=== PATIENT | male | born 1990 | race Caucasian/White ===

== ENCOUNTER 2021-08-01 02:05 | Observation (INO) | payer OTHER, SELFPAY ==
[~2021-08-01] VITALS: Ht 177.8 cm; Wt 72.6 kg
--- NOTE | 2021-08-01 02:12 | NUR ---
PT [facility] BLS, ER BED 07
[2021-08-01 02:27] VITALS: BP 134/68
[2021-08-01 02:36] LABS: APPEARANCE,URINE CLEAR (CLEAR); BILIRUBIN,URINE NEGATIVE (NEGATIVE); BLOOD, URINE NEGATIVE (NEGATIVE); COLOR,URINE YELLOW (YELLOW); LEUKOCYTE ESTERASE ,URINE NEGATIVE (NEGATIVE); NITRITE, URINE NEGATIVE (NEGATIVE); UGLUCOSE NEGATIVE (NEGATIVE)
[2021-08-01 02:36] LABS: BASOPHILS % (AUTO) 0.6 % (0.0-2.0); EOSINOPHILS # (AUTO) 0.1 K/uL (0-0.4); HEMOGLOBIN 15.5 g/dL (12.0-18.0); LYMPHOCYTES # (AUTO) 1.2 K/uL (2.0-11.5); LYMPHOCYTES % (AUTO) 14.3 % (20.5-51.1); MEAN CORPUSCULAR HEMOGLOBIN 31 pg (27-31); MEAN CORPUSCULAR HGB CONC 34 g/dL (33-37); MEAN CORPUSCULAR VOLUME 89.7 fL (80-94); MONOCYTES # (AUTO) 0.6 K/uL (0.8-1.0); MONOCYTES % (AUTO) 6.9 % (1.7-9.3); NEUTROPHILS # (AUTO) 6.5 K/uL (1.8-7.7); NEUTROPHILS % (AUTO) 77.2 % (42.2-75.2); PLATELET COUNT (AUTO) 298 K/uL (140-450); RED BLOOD CELL COUNT(AUTO) 5.02 MIL/uL (4.20-6.10); RED CELL DISTRIBUTION WIDTH 14.8 % (11.6-13.7); WHITE BLOOD COUNT (AUTO) 8.5 K/uL (4.8-10.8)
[2021-08-01 02:44] LABS: RBC,URINE 0-5 /HPF (0-5); WBC,URINE 0-5 /HPF (0-5)
[2021-08-01 02:45] LABS: CALCIUM OXALATE CRYSTALS,UR 0-10 /HPF (None Seen)
[2021-08-01 02:47] LABS: ANION GAP 11.8 (8-16); CARBON DIOXIDE 27.7 mmol/L (21-32); CHLORIDE 103 mmol/L (98-107); CREATININE 1.1 mg/dL (0.6-1.3); GFR ARICAN-AMERICAN 103 mL/min (>90); GLUCOSE 118 mg/dL (74-106); POTASSIUM 3.5 mmol/L (3.5-5.1); SODIUM SERUM 139 mmol/L (136-145); UREA NITROGEN, BLOOD 14 mg/dL (7-18)
[2021-08-01 02:51] LABS: BARBITURATE, URINE NEGATIVE ng/ml (NEG <=200); BENZODIAZEPINE, URINE NEGATIVE ng/mL (NEG <=200); CANNABINOID, URINE POSITIVE ng/mL (NEG <=50); COCAINE, URINE NEGATIVE ng/mL (NEG <=300); OPIATE, URINE NEGATIVE ng/mL (NEG <=2000); PHENCYCLIDINE SCREEN,URINE NEGATIVE ng/mL (NEG <=25)
[2021-08-01 02:59] LABS: ALBUMIN 4.2 g/dL (3.4-5.0); ASPARTATE AMINOTRANSFERASE 12 U/L (15-37); TOTAL BILIRUBIN 0.7 mg/dL (0.0-1.0)
[2021-08-01 03:00] LABS: ACETAMINOPHEN < 0.5 ug/ml (10-30); SALICYLATE < 2.8 mg/dL (2.8-20.0)
--- NOTE | 2021-08-01 03:30 | NUR ---
30 y/o m cony from home . mother called 911 because he overdosed on shrooms. she said patient was experiencing hallucinations auditory and visual. pt mother states he was overreacting. pt has a hx pf schizophrenia and has been off meds for a month. she felt unsafe pt has pacing behavior, anxiety and has been not been able to recall information.
--- NOTE | 2021-08-01 05:17 | NUR ---
MOTHER CALLED FOR ATTEMPT AT PICKING UP PATIENT, NO ANSWER, VOICEMAIL LEFT.
--- NOTE | 2021-08-01 05:28 | NUR ---
TELEPSYCH VIA [facility] SCHEDULED FOR 829
--- NOTE | 2021-08-01 05:30 | NUR ---
FACESHEET FAXED TO [facility]
--- NOTE | 2021-08-01 05:47 | NUR ---
PT PROVIDED HIS MOTHERS NAME AND NUMBER RAFA [phone] OR [phone]
[2021-08-01] MEDS ORDERED: ZIPRASIDONE MESYLATE 20 MG/ML VIAL IM ONE (06:05)
[2021-08-01] MEDS ORDERED: OLANZapine 10 MG VIAL IM ONE (06:35)
--- NOTE | 2021-08-01 07:16 | NUR ---
RECEIVED REPORT FROM RONNIE DAVEY. TRANSFER OF CARE AT THIS TIME.
--- NOTE | 2021-08-01 07:45 | NUR ---
PT CALM AND COOPERATIVE, RESTING IN BED EQUAL AND VISIBLE RISE AND FALL OF CHEST. WILL CONTINUE TO MONITOR.
--- NOTE | 2021-08-01 08:50 | NUR ---
PT CURRENTLY ON TELEPSY VIDEO CHAT WITH DR. Pablo
--- NOTE | 2021-08-01 08:58 | NUR ---
PER DR. Pablo SHE RECOMMENDS TO PLACE PT ON 5150 HOLD. MEAGHAN COUCH CONTACTED
--- NOTE | 2021-08-01 09:19 | NUR ---
[place] [employer] BEDSIDE EVALUTING PT
--- NOTE | 2021-08-01 09:20 | NUR ---
[place] [facility] PLACED PATIENT ON 5150 HOLD
--- NOTE | 2021-08-01 14:18 | NUR ---
SPOKE WITH GERMANIA FROM [facility] AND WAS INFORMED THE PATIENT HAS [facility] AND THEY ARE NOT CONTRACTED WITH HIS INSURANCE FOR HIS AGE GROUP
--- NOTE | 2021-08-01 15:22 | NUR ---
PT PROVIDED WITH SANDWHICH, WATER, AND CRACKERS BEDSIDE
--- NOTE | 2021-08-01 17:00 | NUR ---
PT CALM AND COOPERATIVE, RESTING IN BED EQUAL AND VISIBLE RISE AND FALL OF CHEST. WILL CONTINUE TO MONITOR.
[2021-08-01] MEDS ORDERED: HALOPERIDOL IM 5 MG/ML VIAL IVP ONE (18:25)
[2021-08-01] MEDS ORDERED: HALOPERIDOL IM 5 MG/ML VIAL ONE (18:28)
--- NOTE | 2021-08-01 18:32 | NUR ---
PT PROVIDED WITH DINNER TRAY BEDSIDE
--- NOTE | 2021-08-01 19:12 | NUR ---
Dheeraj britt in ED - 08/01/21 at 2042 by MIRIAN Received report from CAPO Alvarez and continue care of patient.
--- NOTE | 2021-08-01 19:12 | NUR ---
Received report from CAPO Levy and continue care of patient.
--- NOTE | 2021-08-01 20:07 | NUR ---
Patient is sleeping.
[2021-08-01] MEDS: OLANZapine 5 MG TAB PO SCH (20:38)
--- NOTE | 2021-08-01 20:41 | NUR ---
Given PM medication as order.
--- NOTE | 2021-08-01 21:23 | NUR ---
Patient appears to be resting comfortably in bed. Respirations even and unlabored.
--- NOTE | 2021-08-01 21:44 | NUR ---
Intake was received. Prior shift faxed to several facilities. [facility] (denied per ins), [facility]/ [facility]/ [facility]. Intake was aslo faxed to [facility]/ [facility]/ [facility]/ [facility]. Will keep facility informed of any updates regarding placement.
--- NOTE | 2021-08-01 22:42 | NUR ---
Patient is sleeping.
--- NOTE | 2021-08-02 00:18 | NUR ---
Patient appears to be resting comfortably in bed. Respirations even and unlabored.
--- NOTE | 2021-08-02 02:42 | NUR ---
Patient is sleeping.
--- NOTE | 2021-08-02 04:33 | NUR ---
Patient is sleeping.
--- NOTE | 2021-08-02 06:27 | NUR ---
Patient appears to be resting comfortably in bed. Respirations even and unlabored.
--- NOTE | 2021-08-02 07:15 | NUR ---
RECEIVED REPORT FROM CAPO CASH.
--- NOTE | 2021-08-02 07:16 | NUR ---
Reported given to CAPO Zhu and endorse care of patient.
--- NOTE | 2021-08-02 07:48 | NUR ---
PT PROVIDED WITH BREAKFAST TRAY BEDSIDE
--- NOTE | 2021-08-02 09:59 | NUR ---
PT SLEEPING SUPINE, VISIBLE EQUAL RISE AND FALL OF CHEST, WILL CONTINUE TO MONITOR.
--- NOTE | 2021-08-02 11:03 | NUR ---
PT COMPLAINING "OF A WEIRD FEELING HIS HEAD AT THIS TIME." DR. LEE MADE AWARE AND SPEAKING TO PT BEDSIDE CURRENTLY
[2021-08-02] MEDS ORDERED: NAPROXEN 500 MG TAB PO STA (11:05)
--- NOTE | 2021-08-02 11:40 | NUR ---
PT REQUESTING TO KNOW TO WHY HE IS ON 5150 HOLD. ER MD BEDSIDE SPEAKING WITH PATIENT AND INFORMED CAN PLACE NEW REQUEST FOR TELE PSY
--- NOTE | 2021-08-02 12:13 | NUR ---
PT BEDSIDE EATING LUNCH TRAY
[2021-08-02] MEDS ORDERED: OLANZapine 10 MG VIAL IM ONE (12:50)
--- NOTE | 2021-08-02 13:29 | NUR ---
PT RESTING IN BED SLEEPING ON RIGHT SIDE, WILL CONTINUE TO MONITOR.
--- NOTE | 2021-08-02 16:06 | NUR ---
PT CURRENTLY ON TELE PSY CONSULATION BEDSIDE
[2021-08-02] MEDS ORDERED: OLANZapine 5 MG ODT PO PRN (16:25)
--- NOTE | 2021-08-02 16:27 | NUR ---
PER DR. Pablo PATIENT IS TO STAY ON 5150 HOLD AT THIS TIME AND TO STILL SEEK PLACEMENT FOR INPATIENT PSY
--- NOTE | 2021-08-02 17:31 | NUR ---
PT PROVIDED WITH TOOTHBRUSH, TOOTHPASTE, AND MOUTHWASH AT THIS TIME. PT IN RESTROOM PERFORMING ORAL CARE
--- NOTE | 2021-08-02 17:36 | NUR ---
pt bed cleaned at this time, new change of linens.
--- NOTE | 2021-08-02 17:44 | NUR ---
PT REQUESTED TO SHOWER. PT WALKED TO FLOOR THIERNO DESHPANDE CHAPCATHERINENE TO SHOWER ON FLOOR
--- NOTE | 2021-08-02 17:58 | NUR ---
PT RETURNED TO BED 7 FROM SHOWER WITH THIERNO COLLAZO. PT PROVIDED WITH DINNER TRAY BEDSIDE
--- NOTE | 2021-08-02 19:20 | NUR ---
REPORT RECEIVED FROM CAPO CARDENAS. CONTINUITY OF PT CARE AT THIS TIME.
--- NOTE | 2021-08-02 19:51 | NUR ---
PT REPORTS FEELING OK, REPORTS SOME "GUT DISCOMFORT" NO NAUSEA, DENIES FEELING ANXIOUS OR OTHER SYMPTOMS. PT DOES NOT WANT ANY MEDICATION FOR PAIN. PROVIDED W WATER. ALL NEEDS MET AT THIS TIME. Addendum: 08/03/21 at 0532 by ThinkspeedKalpesh PT REPORTS UNSURE IF HAVING VISUAL OR AUDITORY HALLUCINATIONS, REPORTS IT IS DIFFICULT TO DISTINUGISH WHAT IS REAL AND WHAT IS NOT. PT DENIES VISUAL OR AUDITORY HALLUCINATIONS INDICATING HARM TO SELF OR OTHERS.
[2021-08-02] MEDS: OLANZapine 5 MG TAB PO SCH (21:24)
--- NOTE | 2021-08-02 23:55 | NUR ---
PT APPEARS TO BE RESTING W EYES CLOSED IN SUPINE POSITION. + CHEST RISE AND FALL. NAD NOTED, WILL CONTINUE TO MONITOR.
--- NOTE | 2021-08-03 03:15 | NUR ---
PT DENIES ANY PAIN OR ONGOING DISCOMFORT. PT REPORTS FEELING ASHAMED OF ACTIONS LWADING UP TO HIM COMING TO HOSPITAL AND REPORTS NO INTENTION OF EVER BEHAVING IN SUCH WAY AGAIN. VSS. PROVIDED PT W WATER. ALL NEEDS MET AT THIS TIME. BREATHING EVEN AND UNLABORED. NAD NOTED, WILL CONTINUE TO MONITOR.
--- NOTE | 2021-08-03 03:17 | NUR ---
PT AMBULATED TO BATHROOM W STEADY GAIIT.
--- NOTE | 2021-08-03 04:29 | NUR ---
PT APPEARS TO BE RESTING W EYES CLOSED IN R LATERAL POSITION. + CHEST RISE AND FALL. NAD NOTED, WILL CONTINUE TO MONITOR.
--- NOTE | 2021-08-03 05:28 | NUR ---
PT AMBULATED TO BATHROOM W STEADY GAIT.
--- NOTE | 2021-08-03 05:34 | NUR ---
PT REPORTS FEELING CONCERNED THAT PD IS HERE FOR HIM AND FEELS ANXIOUS. RE-ASSURED PT THAT CURRENT OFFICER IS NOT HERE FOR PT. PT REPORTS HE IS NOT PROUD OF PREVIOUS ACTIONS AND WANTS TO DO BETTER. SPOKE W PT ON HOW HE HAS BEEN BEHAVING APPROPRIATELY HERE W STAFF AND SELF, PT SMILED AND REPORTS FEELING BETTER. PT DENIES VISUAL OR AUDITORY HALLUCINATIONS INDICATING HARM TO SELF OR OTHERS.
--- NOTE | 2021-08-03 06:53 | NUR ---
PT DENIES TAKING ANY MEDICATIONS AT HOME.
--- NOTE | 2021-08-03 07:16 | NUR ---
Pt report given to RONNIE STEARNS. Transfer of care at this time.
--- NOTE | 2021-08-03 07:17 | NUR ---
REPORT RECEIVED FROM CAPO LEDEZMA FOR PATIENT CONTINUITY OF CARE.
--- NOTE | 2021-08-03 08:30 | NUR ---
PATIENT RESTING IN BED, RESPIRATIONS EVEN AND UNLABORED. NO SIGNS OF DISTRESS NOTED, SAFETY PRECAUTIONS PUT INTO PLACE. WILL CONTINUE TO MONITOR
--- NOTE | 2021-08-03 08:40 | NUR ---
PATIENT PROVIDED W/ BREAKFAST TRAY AT BEDSIDE.
--- NOTE | 2021-08-03 09:05 | NUR ---
PATIENT COMPLETED 100% OF BREAKFAST TRAY AT THIS TIME.
--- NOTE | 2021-08-03 09:30 | NUR ---
PATIENT SLEEPING IN BED, NO SIGNS OF DISTRESS NOTED AT THIS TIME.
--- NOTE | 2021-08-03 09:43 | NUR ---
DR. Pablo EVALUATING PATIENT VIA TELEPSYCH
[2021-08-03] MEDS ORDERED: KCL 20 MEQ/WATER INJ PREMIX 200 ML IV PRN (11:25)
[2021-08-03] MEDS ORDERED: MAG SULF 2000 MG/WATER PREMIX 50 ML IV PRN (11:25)
[2021-08-03] MEDS ORDERED: MAGNESIUM OXIDE 400 MG TAB PO PRN (11:25)
[2021-08-03] MEDS ORDERED: POTASSIUM CHLORIDE 10 MEQ TABER PO PRN (11:25)
[2021-08-03] MEDS ORDERED: ACETAMINOPHEN 325 MG TAB PO PRN (11:25)
[2021-08-03] MEDS ORDERED: ONDANSETRON 4 MG/2 ML VIAL IVP PRN (11:25)
[2021-08-03] MEDS ORDERED: HYDROcodone/APAP 5/325 MG 1 TAB TAB PO PRN (11:25)
--- NOTE | 2021-08-03 12:06 | NUR ---
DC PLANNING SW CALL [facility] AT TO FOLLOW UP WITH PSYCH PLACEMENT SEARCH. SPOKE TO JESSICA STATING NO PLACEMENT HAS BEEN FOUND. PATIENT'S CLINICALS HAS BEEN SEND TO [facility], [facility], AND [facility] BUT THEY (DECLINED PATIENT). SW ATTEMPTED TO MEET WITH PATIENT TO GET CONTACT NUMBER FOR PATIENT'S MOTHER AND TO DISCUSS AND GATHER PATIENT'S COLLATERAL INFORMATION. PATIENT WAS AWAKE BUT UNABLE TO PROVIDE INFORMATION KEPT CHANGING DISCUSSION AND DID NOT ANSWER SOME OF THE QUESTIONS APPROPRIATELY. SW WILL FOLLOW UP NEEDED.
--- NOTE | 2021-08-03 12:40 | NUR ---
PATIENT TRANSFERRED FROM ER. RECEIVED REPORT FROM CAPO STEARNS AT BEDSIDE. PATIENT ALERT,ORIENTED. VERBAL. ON ROOM AIR NO DISTRESS NOTED. ATTENDED ALL NEEDS. PROVIDE COMFORT AND ALL SAFETY PRECAUTIONS. 1:1 SITTER PRSENT. WILL CONTINUE TO MONITOR THE PT.
--- NOTE | 2021-08-03 12:43 | NUR ---
Patient will be admitted to care of . Admited to MED SURG. Will go to room 109B. Belongings list completed. Report to CAPO ENRIQUE.
--- NOTE | 2021-08-03 14:05 | NUR ---
PATIENT HAS BEEN SCREENED AND CATEGORIZED LOW NUTRITION RISK. PATIENT WILL BE SEEN WITHIN 7 DAYS OF ADMISSION. 08/09/[address]
--- NOTE | 2021-08-03 14:26 | NUR ---
RECEIVING ACUTE SCHIZOAFFECTIVE PT FROM ED WHO IS CURRENTLY ON 5150 ; THAT PT IS AWAKE, ALERT, W/O ACUTE RESPIRATORY DISTRESS NOTED. NO IV ACCESS, CALL LIGHT WITHIN REACH; ABLE TO MAKE NEEDS AWARE. 1:1 SITTER PRESENT. WILL CONTINUE TO MONITOR.
[2021-08-03 16:39] VITALS: BP 134/59
--- NOTE | 2021-08-03 17:41 | NUR ---
MADE ROUNDS . PT. ALERT,AWAKE. STABLE ON ROOM AIR. NO RESP. DISTRESS NOTED. ALL SAFETY MEASURES IN PLACE. 1:1 SITTER PRESENT. WILL CONTINUE TO MONITOR THE PT.
--- NOTE | 2021-08-03 19:07 | NUR ---
ENDORSED REPORT TO PM SHIFT CAPO URRUTIA FOR CONTINUITY OF CARE. PT. STABLE.
--- NOTE | 2021-08-03 19:30 | NUR ---
PT RECEIVED FROM DAY SHIFT NURSE FOR CONTINUITY OF CARE. PT AWAKE, ALERT AND ORIENTED. ON ROOM AIR. IV ON L AC G18, PATENT AND INTACT.DENIES PAIN. NO S/SX OF DISTRESS. SITTER BY THE DOOR. ALL PRECAUTIONS IN PLACE. WILL CONTINUE TO MONITOR.
[2021-08-03 20:00] VITALS: BP 118/65
[2021-08-03] MEDS: OLANZapine 5 MG TAB PO SCH (20:36)
--- NOTE | 2021-08-03 21:00 | NUR ---
SCHEDULED MEDICATIONS GIVEN. PT TOLERATED WELL. DISTRESS NOTED.
--- NOTE | 2021-08-03 23:10 | NUR ---
PT RESTLESS. PRN ZYPREXA GIVEN. NO DISTRESS NOTED. WILL CONTINUE TO MONITOR.
[2021-08-04] VITALS: BP 118/65
--- NOTE | 2021-08-04 02:55 | NUR ---
ROUNDS MADE . PT. ALERT,AWAKE. STABLE ON ROOM AIR. NO RESP. DISTRESS NOTED. ALL SAFETY MEASURES IN PLACE. 1:1 SITTER PRESENT. WILL CONTINUE TO MONITOR.
--- NOTE | 2021-08-04 03:44 | NUR ---
AT 0313 PATIENT REMOVED HIS IV SITE BECAUSE IT WAS BOTHERING HIM. NURSING KEPT AREA CLEAN AND DRY. RESIDENT WAS RESTLESS THROUGHOUT THE NIGHT. SLEEP FOR ONE HOUR THEN WAKES UP MOVING ABOUT. PATIENT DENIES WANTING TO HARM HIMSELF AT THIS TIME. NURSING WILL CONTINUE THE 1:1 FOR SUICIDAL IDEALIZATION. MNURPH1
[2021-08-04 04:00] VITALS: BP 113/68
--- NOTE | 2021-08-04 05:10 | NUR ---
PATIENT IS SEXUALLY INAPPROPRIATE WITH FEMALE STAFF. NURSING WAS ABLE TO GIVE DIRECT AND APPROPRIATE BOUNDARIES. PATIENT UNDERSTOOD AND AGREED TO BE APPROPRIATE WITH FEMALE STAFF. PATIENT WAS ENCOURAGED TO PERFORM ORAL HYGIENE AND PATIENT AGREED. NURSING WILL INFORM AM SHIFT OF SHIFT REPORT DURING THE NIGHT. [email or web address]
--- NOTE | 2021-08-04 07:15 | NUR ---
ENDORSED PATIENT TO GLENN TRUJILLO FOR CONTINUITY OF CARE. PATIENT IS ANXIOUS BUT NOT STRIKING OUT OR HARMFUL TO SELF. MNURPH1
--- NOTE | 2021-08-04 07:16 | NUR ---
RECEIVED REPORT FROM TAX MANAGER PUBLIC NURSE FOR CONTINUITY OF CARE. PT IS AWAKE AND WALKING AROUND THE ROOM AT THIS TIME. RESPIRATIONS ARE EVEN AND UNLABORED ON ROOM AIR. NO COMPLAINTS OF PAIN OR DISCOMFORT NOTED. PT HAS 1:1 SITTER FOR 5150. WILL CONTINUE TO MONITOR.
[2021-08-04 08:00] VITALS: BP 140/77
[2021-08-04] MEDS: ENOXAPARIN 40 MG/0.4 ML SYR SUBQ SCH (09:00)
--- NOTE | 2021-08-04 10:15 | NUR ---
PER ADVISEMENT OF TELEPSYCH MD, PT WAS PLACED ON A 5150 HOLD FOR DANGER TO SELF.
--- NOTE | 2021-08-04 10:20 | NUR ---
PT SEEN MY TELEPSYCH, DR Posey. NEW ORDERS GIVEN, TORB. PER DR Posey, CONTINUE WITH 5150 HOLD.
[2021-08-04] MEDS ORDERED: OLANZapine 5 MG TAB PO PRN (12:25)
--- NOTE | 2021-08-04 13:00 | NUR ---
DANUTA PLANNING SW FAXED PATIENT'S UPDATED INFORMATION AND CLINICALS INCLUDING UPDATED 5150 HOLD TO [facility] AT WITH COMPLETE CONFIRMATION AT ABOUT 12:30 SW FAXED AT [facility] PATIENT'S UPDATED CLINICAL PACKET WITH COMPLETE CONFIRMATION AT ABOUT 12:30 SW CALL [employer] AND REQUESTED A WELFARE CHECK ON PATIENT'S FAMILY TO MAKE CONTACT WITH [facility]/STAFF, AND DISCUSS PATIENT'S STATUS. OFFICER SOHAIL WILL BE ATTEMPTING TO MAKE CONTACT WITH FAMILY AT PATIENT'S ADDRESS ON CHART. Addendum: 08/05/21 at 1149 by Aleyad Mao DC PLANNING SW CALL [facility] AT SPOKE TO JANE AT INTAKE DISCUSSED PATIENT'S STATU, [facility] AND POSSIBLE BED OPENING FOR PATIENT TO BE ADMITTED BY THEIR FACILITY. JANE REQUESTED FOR PATIENT'S CLINICALS AND SW SEND THEM VIA FAX AT WITH COMPLETE CONFIRMATION AT ABOUT 11:50 CHARLIE/AMANDA WILL FOLLOW UP NEEDED.
--- NOTE | 2021-08-04 13:02 | NUR ---
DID ROUNDS ON PT. PT IS SITTING IN BED. RESPIRATIONS ARE EVEN AND UNLABORED ON ROOM AIR. NO SIGNS OF DISTRESS NOTED. PT CONTINUES TO HAVE 1:1 SITTER. WILL CONTINUE TO MONITOR.
--- NOTE | 2021-08-04 14:03 | NUR ---
PT PACING AROUND ROOM. COMES UP TO SITTER AND STATES "I WANT TO GO. I DONT TRUST IT". ASKED PT WHAT HE DOES NOT TRUST, PT JUST WALKS AWAY. RE-ORIENTATED PT. PT CONTINUES TO PACE. WILL CONTINUE TO MONITOR.
[2021-08-04 16:00] VITALS: BP 130/48
--- NOTE | 2021-08-04 16:02 | NUR ---
PT CAME UP TO STAFF TO ASK WHEN IS DINNER GOING TO BE READY. STAFF INFORMED HIM OF DINNER TIME. PT STATED "OK" AND WENT BACK TO BED. WILL CONTINUE TO MONITOR.
--- NOTE | 2021-08-04 18:12 | NUR ---
RECEIVED CALL FROM [facility] TO GET REPORT AND SEE IF PT WAS APPROPRIATE. GAVE REPORT. WAS INFORMED THAT PT WAS ACCEPTED TO [facility], DR TRINIDAD WILL BE ADMITTING PHYSICIAN. PT WILL BE GOING TO UNIT 2B. TRANSPORTATION WILL BE SET UP BY [employer] SALES CONSULTANT.
--- NOTE | 2021-08-04 18:59 | NUR ---
RECEIVED CALL FROM [facility], STATED THAT THEY HAD RUN PTS INSURANCE AND IT SHOWED [facility] AND THEY ARE ONLY CONTRACTED THROUGH [facility]. THEY CANNOT ACCEPT PT. TRANSPORTATION CANCELED.
--- NOTE | 2021-08-04 19:10 | NUR ---
ENDORSED PT TO ADJUNCT PROFESSOR OF ENGLISH NURSE FOR CONTINUITY OF CARE. PT CONTINUES OF 5150 HOLD. SITTER AT DOORWAY. PT IS STABLE.
--- NOTE | 2021-08-04 19:11 | NUR ---
RECEIVED PATIENT FROM GLENN AUDIOLOGY DIRECTOR, CONTINUITY OF CARE. PATIENT WAS PACING ANY ANXIOUS. PATIENT WAS NOTED STATING HE HEARS SOUND BUT NO VOICES TELLING HIM TO HARM HIMSELF OR OTHERS. SKIN INTACT. PATIENT DENIES ANY PAIN/DISCOMFORT. PATIENT IS ON ROOM AIR AND NO COMPLAINTS OF SHORTNESS OF BREATH. NO NOTED EDEMA OR DISTENDED ABDOMEN. PATIENT IS AMBULATORY AND CONTINENT. ALL SAFETY MEASURES ARE IN PLACE WITH SITTER FOR 1:1 FOR SUICIDAL IDEALIZATION. ENCOURAGE PATIENT TO TELL SITTER HIS NEEDS AND WANTS AND ANY ASSISTANCE NEEDED. PATIENT UNDERSTOOD AND AGREED. NURSING WILL CONTINUE TO MONITOR
--- NOTE | 2021-08-04 20:00 | NUR ---
Patient's Plan of Care was discussed and reviewed with SENIOR ADMINISTRATIVE SUPPORT: MANAN VELA
--- NOTE | 2021-08-04 20:00 | NUR ---
Patient's Plan of Care was discussed and reviewed with TAKER OFF HEMP FIBER: ras Ryan
[2021-08-04] MEDS: ZIPRASIDONE 40 MG CAP PO SCH (20:09)
--- NOTE | 2021-08-04 20:21 | NUR ---
PATIENT WAS PACING AND SLAPPING THE FLOOR. PATIENT WAS DISPLAYING SIGNS ANS SYMPTOMS OF AGITATION WITH SHAKING HANDS. PATIENT PACKED THE LINEN IF HE WANTED TO LEAVE. PATIENT WAS ABLE TO FOLLOW REDIRECTIONS TO SIT DOWN ANT THAT HE WAS IN THE HOSPITAL WHERE HE IS SAFE. PATIENT WAS PROVIDED WITH NOURISHMENTS AND WATER. PATIENT WAS GIVEN AN ORAL PRN TO ASSIST WITH THE AGITATION. NURSING WILL MONITOR IN AN HOUR THE EFFECTS.
--- NOTE | 2021-08-04 21:21 | NUR ---
PATIENT CONTINUES TO PACE HIS ROOM. PATIENT IS RESTLESS. NURSING TO NOTIFIED MD. PATIENT CONTINUES TO RESPOND TO AUDIO HALLUCINATION IN SPEAKING TO NO ONE. PATIENT HAS HAD MULTIPLE REDIRECTIONS AND WILL COMPLY BREIFLY THEN CONTINUE TO LEAVE THE ROOM IN FEAR THAT SOMEONE IS COMING FOR HIM. NURSING TO REASSURE THAT HE IS IN A SAFE PLACE AND NO ONE WILL COME TO GET HIM. NURSING BRITT CONTINUE TO MONITOR FOR SAFETY.
[2021-08-04] MEDS ORDERED: LORazepam 1 MG TAB PO PRN (22:50)
--- NOTE | 2021-08-04 22:57 | NUR ---
NEW ORDERS PER DR LUNA FOR AGITATION FOR INEFFECTIVE PRN OF ZYPREXA. NEW ORDER FOR ATIVAN 1 MG ORALLY EVERY 6 HOURS NEEDED. ROLA AT THE NIGHT PHARMACY VERIFIED NEW ORDERS. NURSING GAVE NEW ORDER FOR ATIVAN PRN. WILL MONITOR EFFECTS. PER MD IF THE PRN IS INEFFECTIVE TO PAGE HIM BACK FOR NEW ORDERS. [email or web address]
--- NOTE | 2021-08-04 23:58 | NUR ---
PATIENT HAS TAKEN OFF HIS HOSPITAL GOWN REQUESTING FOR HIS CELL PHONE. PRN WAS INEFFECTIVE. PATIENT CONTINUES TO PACES, TALK TO AUDIO HALLUCINATIONS. PATIENT IS REQUESTING FOR SOMETHING TO HAVE HIM GO TO SLEEP. PATIENT IS SEXUALLY INAPPROPRIATE WITH FEMALE STAFF ASKING THEM TO LAY IN THE BED WITH THEM. PATIENT WAS ASKED TO BEHAVE A APPROPRIATELY AND STOP ASKING THE FEMALE STAFF TO LAY IN HIS BED WITH HIM. PATIENT APOLOGIZES FOR HIS INAPPROPRIATE REQUESTS. NURSING WILL PAGE THE DOCTOR FOR ORDERS. [email or web address]
[2021-08-05] MEDS ORDERED: HALOPERIDOL IM 5 MG/ML VIAL IM SCH (00:20)
--- NOTE | 2021-08-05 00:26 | NUR ---
PAGED DR LUNA FOR THE INEFFECTIVE THE LAST PRN OF ATIVAN 1MG WAS. nEW ORDER FOR HALDOL 5MG IM X 1 NOW AND ONCE ONLY. CALLED PHARMACY TO VERIFY THE ORDER AND SPOKE WITH ROLA. NURSING WILL MONITOR FOR EFFECTS. NURSING WILL CONTINUE TO MONITOR FOR SAFETY.
--- NOTE | 2021-08-05 01:47 | NUR ---
PATIENT IS IN BED QUIET AND LYING DOWN. HALDOL IM X 1 NOW WAS EFFECTIVE. NURSING WILL CONTINUE TO MONITOR SAFETY AND ANY ADVERSE REACTIONS. NO NOTED ADVERSE REACTIONS AT THIS TIME. [email or web address]
--- NOTE | 2021-08-05 07:13 | NUR ---
ENDORSED PATIENT TO GLENN TRUJILLO CONTINUITY OF CARE. PATIENT IS ASLEEP AND STABLE. [email or web address]
--- NOTE | 2021-08-05 07:15 | NUR ---
RECEIVED REPORT FROM SIGNAL WORKER HELPER NURSE FOR CONTINUITY OF CARE. PT IN BED SLEEPING AT THIS TIME. RESPIRATIONS ARE EVEN AND UNLABORED ON ROOM AIR. NO SIGNS OF DISTRESS NOTED. NO SIGNS OF PAIN OR DISCOMFORT NOTED. PT IS A&OX4 WITH CONFUSION AND PARANOIA. PT IS ON 5150 HOLD WITH 1:1 SITTER. ABLE TO VERBALIZE NEEDS TO STAFF. PT AMBULATES INDEPENDENTLY. ABD IS NONTENDER, NONDISTENDED WITH BOWEL SOUNDS NOTED. SKIN IS WARM, DRY, AND INTACT. ALL SAFETY MEASURES IN PLACE. WILL CONTINUE TO MONITOR.
--- NOTE | 2021-08-05 08:00 | NUR ---
Patient's Plan of Care was discussed and reviewed with RONNIE Dumont
[2021-08-05] MEDS: ENOXAPARIN 40 MG/0.4 ML SYR SUBQ SCH (08:44)
[2021-08-05] MEDS: ZIPRASIDONE 40 MG CAP PO SCH (08:45)
--- NOTE | 2021-08-05 08:51 | NUR ---
UNABLE TO ADMINISTER MEDICATION GEODON. MED ORDER 20MG, ON HAND 40MG CAPSULE. UNABLE TO GIVE PARTIAL DOSE OF THIS MEDICATION. PHARMACY MADE AWARE.
--- NOTE | 2021-08-05 09:16 | NUR ---
DC PLANNING: THE PATIENT PRESENTED FROM HOME, HIS MOTHER CALLED 911 BECAUSE SHE WAS UNCOMFORTABLE WITH HIS BEHAVIORS. PATIENT WAS HAVING AUDITORY HALLUCINATIONS AND HAS A H/O SCHIZOAFFECTIVE DISORDER. TELEPSYCH EVALUATION RECOMMENDS IP PSYCH PLACEMENT. PATIENT RE-EVALUATED YESTERDAY VIA TELEPSYCH, CONTINUES TO RECOMMEND 5150 HOLD UNDER CONTEXT OF PATIENT BEING A DANGER TO SELF, RECOMMENDATION FOR MEDICATION ADJUSTMENT FROM ZYPREXA TO GEODON BID, ZYPREXA PRN. CM SPOKE WITH [facility], THEY HAVE REFERRED THE PATIENT TO MULTIPLE FACILITIES, CM ASKED THAT THEY DOCUMENT EFFORTS. CM WILL FOLLOW. Addendum: 08/05/21 at 1053 by Carley Esteves CM DC PLANNING: CM SPOKE WITH YOHAN AT [facility] REGARDING PATIENTS RECENT DENIAL FROM [facility] BECAUSE OF INSURANCE, PSYCH IS A CARVE OUT AND PATIENTS M/[place] IS PROBABLY ACTIVE IN [facility]. CM WILL FOLLOW.
--- NOTE | 2021-08-05 09:26 | NUR ---
Per previous shift, packet has been fax[place]: [facility] [place]
--- NOTE | 2021-08-05 11:20 | NUR ---
DID ROUNDS ON PT. PT IN BED SLEEPING AT THIS TIME. RESPIRATIONS ARE EVEN AND UNLABORED ON ROOM AIR. PT CONTINUES TO HAVE 1:1 SITTER. WILL CONTINUE TO MONITOR.
--- NOTE | 2021-08-05 13:03 | NUR ---
Call Center still aware of patient. Not able to fax at this time due to call center fax is not working. Waiting for IT to fix.
--- NOTE | 2021-08-05 14:01 | NUR ---
DID ROUNDS ON PT. PT CONTINUES TO REST IN BED AT THIS TIME. RESPIRATIONS ARE EVEN AND UNLABORED. NO SIGNS OF DISTRESS NOTED. WILL CONTINUE TO MONITOR.
--- NOTE | 2021-08-05 14:55 | NUR ---
RECEIVED CALL FROM STATING THAT PT WILL BE DISCHARGING TO [facility]. [facility] WILL BE TRANSPORTING PT. DISCHARGE PAPERWORK COMPLETE. CALLED RADHA AT INTAKE AT [facility] TO GIVE REPORT, PER RADHA, WE DO NOT HAVE TO GIVE REPORT, STATES NURSE ALREADY GAVE REPORT.
--- NOTE | 2021-08-05 15:00 | NUR ---
DC PLANNING SW CALL [facility] AT SPOKE TO JANE AT INTAKE DISCUSSED PATIENT'S STATUS, [place] [facility] AND POSSIBLE BED OPENING FOR PATIENT TO BE ADMITTED BY THEIR FACILITY. JANE REQUESTED FOR PATIENT'S CLINICALS AND SW SEND THEM VIA FAX AT WITH COMPLETE CONFIRMATION AT ABOUT 11:50 SW/AMANDA WILL FOLLOW UP NEEDED. CHARLIE RECEIVED A CALL FROM [facility], SPOKE TO HELEN FROM INTAKE STATING THAT PATIENT IS BEEN ACCEPTED BY DR. PALMER AT UNIT #1 AT [facility] [address] [facility]. [facility]. [id number] REPORT NUMBER SW THANKED HIM FOR THE INFORMATION WILL BE SETTING UP TRANSPORT FOR PATIENT AND WILL ENDORSE INF. WITH PATIENT RN TO SET UP FOR DC. CHARLIE FAXED MEDICAL TRANSPORT FORM AND CALL [facility] AT [phone] TO SET UP COAL WASHER TIME AND TRANSPORT TO [facility] IN [place]. SPOKE TO CRISTO WHO AFTER TAKING ALL INFORMATION PROVIDED ETA FOR PATIENT COAL WASHER AT ABOUT 16:00. CHARLIE ENDORSED INFORMATION WITH PATIENT RN. CHRALIE WILL FOLLOW UP NEEDED.
[2021-08-05 16:00] VITALS: BP 128/67
--- NOTE | 2021-08-05 17:57 | NUR ---
PT PICKED UP BY [facility]. PT BEING TRANSFERRED TO [facility]. NO IV INPLACE. ALL BELONGINGS TAKEN UPON DISCHARGE. ALL DISCHARGE PAPERWORK COMPLETED.
== END 2021-08-05 18:00 ==
LOC: MED 02:05 → MTU 08-03 11:28
PROVIDERS: ADMIT Internal Medicine; ATTEND Internal Medicine
DX: F29 Unspecified psychosis not due to a substance or known physiological condition (principal); Z20.822 Contact with and (suspected) exposure to COVID-19; F20.9 Schizophrenia, unspecified; F31.9 Bipolar disorder, unspecified; F12.99 Cannabis use, unspecified with unspecified cannabis-induced disorder
CPT/HCPCS: 36415; 80053; 80305; 81001; 85025; 87081; 87426; 93005; 96372; 96374; 99284; G0378; G0480; G0482; J1630; J3486; J3490; U0003; 99285; J1650

== ENCOUNTER 2021-08-24 18:47 | Inpatient (IN) | payer OTHER ==
[~2021-08-24] VITALS: Ht 177.8 cm; Wt 97.1 kg
[2021-08-24 18:55] VITALS: BP 136/80
--- NOTE | 2021-08-24 19:03 | NUR ---
PT AMBUALTED TO BED #7
--- NOTE | 2021-08-24 19:04 | NUR ---
DR. ZEPEDA BEDSIDE EVALUATING PT
--- NOTE | 2021-08-24 19:20 | NUR ---
PT BELONGINGS GIVEN TO SECURITY.
--- NOTE | 2021-08-24 19:27 | NUR ---
BLOOD DRAWN AND GIVEN TO PHE[facility].
--- NOTE | 2021-08-24 19:39 | NUR ---
COVID SWABS TAKEN TO LAB.
[2021-08-24 19:47] LABS: BASOPHILS # (AUTO) 0.1 K/uL (0.00-0.22); BASOPHILS % (AUTO) 0.9 % (0.0-2.0); EOSINOPHILS # (AUTO) 0.3 K/uL (0-0.4); EOSINOPHILS % (AUTO) 4.4 % (0.0-4.0); HEMATOCRIT 43.9 % (36-52); HEMOGLOBIN 15.1 g/dL (12.0-18.0); LYMPHOCYTES # (AUTO) 2.2 K/uL (2.0-11.5); LYMPHOCYTES % (AUTO) 34.2 % (20.5-51.1); MEAN CORPUSCULAR HEMOGLOBIN 31 pg (27-31); MEAN CORPUSCULAR HGB CONC 34 g/dL (33-37); MEAN CORPUSCULAR VOLUME 89.5 fL (80-94); MONOCYTES # (AUTO) 0.5 K/uL (0.8-1.0); MONOCYTES % (AUTO) 7.5 % (1.7-9.3); NEUTROPHILS # (AUTO) 3.4 K/uL (1.8-7.7); PLATELET COUNT (AUTO) 259 K/uL (140-450); RED BLOOD CELL COUNT(AUTO) 4.91 MIL/uL (4.20-6.10); RED CELL DISTRIBUTION WIDTH 14.4 % (11.6-13.7); WHITE BLOOD COUNT (AUTO) 6.4 K/uL (4.8-10.8)
[2021-08-24 20:09] LABS: ACETAMINOPHEN < 0.5 ug/ml (10-30); ALBUMIN 3.8 g/dL (3.4-5.0); ANION GAP 10.5 (8-16); ASPARTATE AMINOTRANSFERASE 24 U/L (15-37); CARBON DIOXIDE 28.2 mmol/L (21-32); CHLORIDE 103 mmol/L (98-107); GFR ARICAN-AMERICAN 114 mL/min (>90); GLUCOSE 93 mg/dL (74-106); POTASSIUM 3.7 mmol/L (3.5-5.1); SALICYLATE < 2.8 mg/dL (2.8-20.0); SODIUM SERUM 138 mmol/L (136-145); TOTAL BILIRUBIN 0.4 mg/dL (0.0-1.0); UREA NITROGEN, BLOOD 14 mg/dL (7-18)
--- NOTE | 2021-08-24 20:24 | NUR ---
MOTHER CAME IN TO GIVE MORE INFORMATION ABOUT SON. MOTHER STATES THAT SON LEFT THE HOUSE FOR A COUPLE OF DAYS AND DID NOT TELL THEM WHERE HE WAS . FINALLY HE REACHED OUT AND TOLD MOM HE WAS DEPRESSED AND WANTS TO GO TO THE ER FOR HELP. PT HAS NO PLAN BUT WANTED "HELP" MOTHER STATED HE IS NOT ON MEDS BUT HAS AN APPT TUESDAY WITH A KELLY FARNSWORTH
--- NOTE | 2021-08-24 20:25 | NUR ---
30 Y/O M BIB MOTHER FOR PSYCH EVAL. WHEN ASSESSESING PT , PT HAS FLAT AFFECT. PT WILL NOT ANSWER QUESTIONS. PT HAS NOT ACTIVE SI OR HOMICIDAL THOUGHTS AT THIS TIME WHEN ASKED. PT MOTHER STATES THAT SON LEFT A COUPLE DAYS AGO AND DID NOT TELL THEM WHERE HE WAS. WHEN HE RETURNED HOME HE TOLD MOTHER HER WAS DEPRESSED AND WANTS HELP. PT DENIES DRUGS/ ALCOHOL. PT WAS UNCOOPERATIVE WHEN ASKED TO [facility] AND HAD TO BE REDIRECTED. DENIES N/V/D; SKIN IS PINK/WARM/DRY; AAOX4 WITH EVEN AND STEADY GAIT; LUNGS CLEAR BL; HR EVEN AND REGULAR; PT DENIES ANY FEVER, CP, SOB, OR COUGH AT THIS TIME; PATIENT STATES PAIN OF 0/10 AT THIS TIME; VSS; PATIENT POSITIONED FOR COMFORT; HOB ELEVATED; BEDRAILS UP X2; BED DOWN. ER MD MADE AWARE OF PT STATUS.
--- NOTE | 2021-08-24 20:39 | NUR ---
TELEPSYCH DOCTOR SPEAKING WITH DR. ZEPEDA
--- NOTE | 2021-08-24 21:00 | NUR ---
30 Y/O M BIB MOTHER FOR PSYCH EVAL. WHEN ASSESSESING PT , PT HAS FLAT AFFECT. PT WILL NOT ANSWER QUESTIONS. PT HAS NO ACTIVE SI OR HOMICIDAL THOUGHTS AT THIS TIME. PT MOTHER STATES THAT SON LEFT A COUPLE DAYS AGO AND DID NOT TELL THEM WHERE HE WAS. PT STATES HE IS TIRED OF EVERYTHING WHEN HE RETURNED HOME HE TOLD MOTHER HER WAS DEPRESSED AND WANTS HELP. PT DENIES DRUGS/ ALCOHOL. PT WAS UNCOOPERATIVE WHEN ASKED QUESTIONS AND HAD TO BE REDIRECTED. PT MOTHER STATES HE HAS DR ROSS WITH PSYCH ON TUESDAY. DENIES N/V/D; SKIN IS PINK/WARM/DRY; AAOX4 WITH EVEN AND STEADY GAIT; LUNGS CLEAR BL; HR EVEN AND REGULAR; PT DENIES ANY FEVER, CP, SOB, OR COUGH AT THIS TIME; VSS; PATIENT POSITIONED FOR COMFORT; HOB ELEVATED; BEDRAILS UP X2; BED DOWN. ER MD MADE AWARE OF PT STATUS.
[2021-08-24] MEDS: OLANZapine 5 MG TAB PO SCH (21:12)
--- NOTE | 2021-08-24 21:37 | NUR ---
Patient appears to be resting comfortably in bed. Vital Signs within normal limits. Respirations even and unlabored. PT STATES THAT MEDICATIOM DOES NOT HELP. FLAT AFFECT
--- NOTE | 2021-08-24 22:48 | NUR ---
RECEIVED FAX FROM [facility] [place] [facility] [place]OVEL PCR RESULT. RESULT PLACED IN PT CHART.
[2021-08-24 23:13] LABS: BARBITURATE, URINE NEGATIVE ng/ml (NEG <=200); BENZODIAZEPINE, URINE NEGATIVE ng/mL (NEG <=200); CANNABINOID, URINE POSITIVE ng/mL (NEG <=50); COCAINE, URINE NEGATIVE ng/mL (NEG <=300); OPIATE, URINE NEGATIVE ng/mL (NEG <=2000); PHENCYCLIDINE SCREEN,URINE NEGATIVE ng/mL (NEG <=25)
--- NOTE | 2021-08-24 23:24 | NUR ---
CALLED [facility] COUCH FOR HOLD. LINE DOWN CALLED BACKUP LINE AT [phone] AND LINE DOWN WELL. WILL ATTEMPT TO CALL LATER
--- NOTE | 2021-08-25 01:06 | NUR ---
TRIED [place] [employer] AGAIN FOR HOLD. BOTH LINES DOWN AT THIS TIME
--- NOTE | 2021-08-25 03:16 | NUR ---
MOTHER RAFA WOULD LIKE IMPORTANT UPDATES [phone]
--- NOTE | 2021-08-25 07:26 | NUR ---
RECEIVED REPORT FROM PETAR TRUJILLO, TRANSFER OF CARE AT THIS TIME. RECEIVED PT ASLEEP IN BED, SIDE RAILS UP, BED IN LOWEST POSITION, RESPIRATIONS EVEN AND UNLABORED. NO SIGNS OF DISTRESS NOTED AT THIS TIME.
--- NOTE | 2021-08-25 08:16 | NUR ---
30 Y/O BIB MOTHER LAST NIGHT FOR PSYCH EVAL. WHEN ASSESSING THE PT HE WAS FOLLOWING INSTRACTIONS AND ANSWERING QUESTIONS. PT DENIES PAIN 0/10. VITALS STABLE. PT RESTING COMFORTABLY. DENIES N/V/D; AAOX4 WITH EVEN AND STEADY GAIT; LUNGS CLEAR BL; HR EVEN AND REGULAR; PT DENIES ANY FEVER, CP, SOB, OR COUGH AT THIS TIME; PATIENT STATES PAIN OF 0/10 AT THIS TIME; VSS; PATIENT POSITIONED FOR COMFORT; HOB ELEVATED
--- NOTE | 2021-08-25 09:23 | NUR ---
PT SITTING IN BED AND EATING HIS BREAKFAST.
[2021-08-25] MEDS ORDERED: LORazepam 1 MG TAB PO ONE (10:40)
[2021-08-25] MEDS ORDERED: ONDANSETRON 4 MG/2 ML VIAL IVP PRN (14:20)
[2021-08-25] MEDS ORDERED: LORazepam 2 MG/ML VIAL IVP PRN (14:20)
[2021-08-25] MEDS ORDERED: ACETAMINOPHEN 325 MG TAB PO PRN (14:20)
--- NOTE | 2021-08-25 15:10 | NUR ---
Patient will be admitted to care of DR TEMPLE. Admited to [facility]. Will go to room 109A. Belongings list completed. Report to MOI ARROYO RN.
--- NOTE | 2021-08-25 15:20 | NUR ---
REPORT GIVEN FROM SKID ADZERKRISTIE SCANLON AND STATES 5150 ISSUANCE IS COMPLETED. PT A/O X3. NO SOB OR RESPIRATORY DISTRESS. ON RA. L HAND #20. WHEN ASKED WHY PT WAS ADMITTED PT STATES, "I GAVE UP". DENIES HURTING HIMSELF AND STATES HE WOULD NOT DO THAT BUT HOPES SOMETHING NATURAL WILL OCCUR TO HIM LIKE A CAR ACCIDENT...ETC. STATES, "HARD SOCIALIZING AND REACHING OUT TO PEOPLE...SO I JUST GAVE UP". PT REPORTS SMOKING 5 CIGARETTES/DAY. DRINKS 1X/WEEK. STATES HE SEE'S "ENERGY CLOUDS" AND STATES IT IS "SPIRITUAL". DENIES HEARING VOICES. PT IS COOPERATIVE. ON 5150 HOLD. VSS. NEEDS ALL MET AT THIS TIME. SUICIDAL PRECAUTIONS INITIATED. 1:1 SITTER AT BEDSIDE. WILL MONITOR CLOSELY.
[2021-08-25 15:46] VITALS: BP 112/60
--- NOTE | 2021-08-25 16:29 | NUR ---
PT AGITATED AND PULLED OUT IV. OFFERED TO SEE IV SITE AND OFFERED BANDAGE. PT STATES, "I DON'T WANT YOU TO TOUCH ME, KEEP YOUR DISTANCE" STATES, "I WANT YOU GUYS TO LEAVE ME ALONE". PT CURRENTLY SLEEPING. IN NO DISTRESS. WILL MONITOR CLOSELY.
--- NOTE | 2021-08-25 16:30 | NUR ---
PT PUNCHING SIDE RAILS AND CURSING AND TALKING TO SELF. SECURITY CALLED. PT STOP PUNCHING SIDE RAILS AND YELLING. PT RESTING WITH EYES CLOSED. PT HAS OUTBURSTS FOR A FEW MINUTES AND THEN GOES BACK TO SLEEP. 1:1 SITTER AT BEDSIDE.
--- NOTE | 2021-08-25 17:48 | NUR ---
PT SLEEPING. IN NO DISTRESS. 1:1 SITTER AT BEDSIDE.
--- NOTE | 2021-08-25 19:07 | NUR ---
REPORT GIVEN TO NIGHTSALFT CAPO MAGANA FOR CONTINUITY OF CARE.
--- NOTE | 2021-08-25 19:15 | NUR ---
RECEIVED PT FROM AM NURSE FOR CONTINUITY OF CARE, PT IS STABLE
--- NOTE | 2021-08-25 20:54 | NUR ---
Late note - Received intake this AM. Intake information was faxed to the following facilities for review for placement. [facility]/ [facility]/ [facility]/ [facility]/ [facility]/ [facility] Will keep ER updated with any information regarding placement.
--- NOTE | 2021-08-25 21:57 | NUR ---
PT STARTED SHOUTING AND BANGING THE WALL, CALLED SECURITY TO PACIFY THE PT. ATIVAN O.5 ML AND ZYPREXA ADMINISTERED.
[2021-08-25] MEDS: OLANZapine 5 MG TAB PO SCH (22:01)
[2021-08-25 23:06] VITALS: BP 128/76
--- NOTE | 2021-08-25 23:30 | NUR ---
PATIENT IS SLEEPING AT THIS TIME.RESPIRATIONS EVEN AND UNLABORED,NO DISTRESS NOTED
--- NOTE | 2021-08-26 02:00 | NUR ---
PATIENT IN BED QUIET AT THIS TIME,NO AGITATION NOTED,NO DISTRESS NOTED.
--- NOTE | 2021-08-26 06:00 | NUR ---
PATIENT ASLEEP, NODISTRESS NOTED,RESPIRATION EVEN AND UNLABORED.
--- NOTE | 2021-08-26 07:35 | NUR ---
ENDORSED PT TO AM NURSE FOR CONTINUITY OF CARE, PT IS STABLE
[2021-08-26 08:00] VITALS: BP 98/63
--- NOTE | 2021-08-26 08:00 | NUR ---
RECEIVED ENDORSEMENT FROM PM SHIFT NURSE. PATIENT SLEEPING ON THE BED, STABLE, W/ NO IV ACCESS. WILL CONTINUE TO MONITOR
--- NOTE | 2021-08-26 08:35 | NUR ---
DC PLANNING SW [facility]PHONE AT [phone] FOR THE PURPOSE OF FOLLOWING UP ON PATIENTS PSYCH PLACEMENT STATUS. CALL MICROBIOLOGY LAB TECHNICIAN ART REPORTED NO UPDATES ON PLACEMENT OF 830AM THIS MORNING. ART REPORTED THAT PACKET HAS BEEN SENT TO THE FOLLOWING PLACEMENTS; [facility], [facility], [facility], [facility], [facility], AND [facility], ALL WHICH HAVE NOT RESPONDED TO REQUEST. SW WILL CONTINUE TO FOLLOW UP.
--- NOTE | 2021-08-26 08:36 | NUR ---
PATIENT HAS BEEN SCREENED AND CATEGORIZED LOW NUTRITION RISK. PATIENT WILL BE SEEN WITHIN 7 DAYS OF ADMISSION. 09/01/[address]
--- NOTE | 2021-08-26 10:09 | NUR ---
Per previous shift, packet has been faxed to: [facility]/Jacinta SUAREZ [facility] [place]
--- NOTE | 2021-08-26 15:30 | NUR ---
DANUTA GEURRA AND CM MET WITH PATIENT AT BEDSIDE FOR THE PURPOSE OF DISCUSSING AND GATHERING COLLATERAL INFORMATION. PATIENT DENIED LIVING IN [place] AND PROVIDED AN [place] ADDRESS. PATIENT REPORTS NO EMERGENCY CONTACTS. PATIENT STATES TO CALL 911 IN THE EVENT THAT AN EMERGENCY OCCURS, 911 AND THE HOSPITAL WOULD BE THE ONLY ONE TO SAVE HIM. PATIENT DENIES HAVING SCHIZOPHRENIA AND STATED THAT HE BELIEVES HE'S BEEN MISDIAGNOSED. PATIENT REPORTS BEING NONCOMPLIANT WITH MEDICATIONS. PATIENT STATED THAT THEY ARE HARMFUL AND CAUSE HIM TO HAVE NOSE BLEEDS AND BECOME MORE AGGRESSIVE. PATIENT REPORTS THAT HE GIVES UP HE LACKS HUMAN INTERACTION, RELATIONSHIPS WITH THE OPPOSITE SEX, AND BELIEVES THAT NO ONE WANTS HIM. CM EXPLAINED TO PATIENT 5150 HOLD STATUS. PATIENT APPEARED TO UNDERSTAND AND REPORTED THAT ONCE HOLD , MOTHER WOULD BE PICKING HIM UP AND TAKING HIM TO GET AN EXORCISM. PATIENT BELIEVES THERE IS SOMETHING INSIDE HIM THAT NEEDS TO COME OUT. PATIENT ALSO REPORTS THAT THERE ARE INDIVIDUALS THAT ARE AFTER HIM, PATIENT COULD NOT IDENTIFY WHO HE BELIEVES IS AFTER HIM HOWEVER, HE REPORTED HE IS READY TO DO WHATEVER THEY WANT ME TO DO. CM INQUIRED ON THOUGHTS OF SELF HARM; PATIENT RESPONDED, IS THAT AN ORDER? 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 CM AGAIN EXPLAINED TO PATIENT THAT HE IS ON A HOLD AND THAT SW WERE LOOKING FOR PSYCH PLACEMENTS. SW INQUIRED ON STATUS OF MEETING WITH A PSYCHIATRIST, PATIENT REPORTED THAT HE HAD AN APPT WITH PSYCHIATRIST, HOWEVER, NEVER FOLLOWED UP APPT WAS TOO FAR. SW INQUIRED IF HED BE OPEN TO MENTAL HEALTH RESOURCES, PATIENT WAS RECEPTIVE AND SAID THAT HE WAS OPEN TO RECEIVING RESOURCES.
--- NOTE | 2021-08-26 15:51 | NUR ---
DC PLANNING: THE PATIENT PRESENTED FOR EVALUATION OF SUICIDAL IDEATION STATING THAT HE WANTS TO GIVE UP. THE PATIENT HAS A PRIOR ADMISSION IN [place] AND WAS ON A 5150 AT THAT TIME, IS CURRENTLY ON A 5150 HOLD. HE WAS PLACED AT [place] ON THE LAST ADMISSION. THE PATIENT HAS A H/O SCHIZOPHRENIA AND NON-COMPLIANCE WITH MEDICATIONS AND TREATMENT. PER HIS MOTHER HE LEFT FOR 2 DAYS AND THEN CAME BACK STATING THAT HE NEEDS HELP, HE HAD A PSYCHIATRY APPT SCHEDULED FOR THIS TUESDAY. TELEPSYCH EVALUATION DONE, RECOMMENDS INPATIENT PSYCH PLACEMENT AND ZYPREXA PO. CM ATTEMPTED TO SPEAK WITH THE PATIENTS MOTHER, NO ANSWER AND UNABLE TO LEAVE MESSAGE. CM AND SW SPOKE WITH THE PATIENT AT BEDSIDE AND CONFIRMED THAT HE HAD BEEN AT [place]. THE PATIENT DENIES LIVING IN [place] AND GAVE AN [place] ADDRESS. HE STATES THAT HE HAS NO EMERGENCY CONTACTS AND EXPECTS THE HOSPITAL STAFF TO CALL 911 IF HE HAS ANY NEEDS AND ASKED FOR CONFIRMATION THAT IT IS NURSING JOB TO KEEP HIM ALIVE. THE PATIENT STATES THAT HE DOES NOT THINK HE HAS SCHIZOPHRENIA HE HAS DISSECTED THE WORD AND IT DOESN'T APPLY TO HIM. ALSO STATES THAT HE DOES NOT BELIEVE IN MEDICATION AND WANTS SOMETHING NATURAL PSYCH MEDS MAKE HIM AGITATED AND WORSEN HIS CONDITION. ALSO STATES THAT HE HAS BEEN LOOKING FOR SOMEONE FEMALE TO CONNECT WITH AND HAVE CHILDREN WITH BUT THAT NO ONE WANTS HIM OR WANTS TO LOVE HIM AND THAT'S WHY HE DECIDED TO GIVE UP. CM ASKED IF HE UNDERSTOOD THAT HE IS ON A 5150 HOLD AND THAT INPATIENT PSYCH PLACEMENT IS PENDING, PATIENT STATED THAT HE KNOWS THAT IN 3 DAYS HIS MOTHER WILL PICK HIM UP AND TAKE HIM FOR AN EXORCISM. STATES THAT THERE ARE THINGS INSIDE OF HIM THAT NEED TO COME OUT. ALSO STATES THAT PEOPLE ARE AFTER HIM AND WATCHING AND THEN REFERENCED THE MOVIE "THE RANDY SHOW" STATING THAT HE'S NOT A CALENDER TENDER AND DOESN'T KNOW WHAT HE DID TO MAKE PEOPLE COME AFTER HIM. 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 HE THEN ASKED IF CM WAS ORDERING TO HURT HIMSELF, CM REPLIED NO, PATIENT THEN STATED THEN NO MA'AM. ALSO STATES THAT HE DOESN'T WANT TO GO TO INPATIENT PSYCH, CM REITERATED THAT HE IS ON AN INVOLUNTARY HOLD, PATIENT REPEATED THAT HE IS BEING TAKEN BY HIS MOTHER FOR AN EXORCISM WHEN HIS HOLD IS UP. CM ASKED IF THE PATIENT HAD ANY QUESTIONS AND HE STATED THAT HE DID NOT. [facility] IS CONTINUING TO WORK ON FINDING PLACEMENT FOR THE PATIENT, CM WILL FOLLOW. Addendum: 08/26/21 at 1610 by Carley Esteves CM Amended: Links added. Addendum: 08/28/21 at 1519 by Carley Esteves CM DC PLANNING: NURSING FOLLOWED UP WITH MATT PENA REGARDING PLACEMENT, THE PATIENT IS ACCEPTED TO ROOM 26B AND CAN BE SENT AT ANY TIME. IS ARRANGING TRANSPORTATION WITH [facility], NURSING WILL CALL REPORT. AMANDA WILL FOLLOW.
[2021-08-26] MEDS: HYDROCORTISONE 1% CRM 30 GM TUBE TP PRN (15:54)
[2021-08-26 16:00] VITALS: BP 148/97
--- NOTE | 2021-08-26 19:07 | NUR ---
ENDORSE PATIENT TO PM SHIFT NURSE. AWAKE, STABLE, W/ NO IV ACCESS. SITTER AT BEDSIDE
--- NOTE | 2021-08-26 19:08 | NUR ---
RECD. SITTING ON BED, RESPIRATION EVEN AND UNLABORED. WRITING WORDS BELOW EACH LETTER OF HIS NAME ON A PAPER. VERBALIZED HE IS NOT HEARING VOICES NOR DESIRING TO HURT HIMSELF. DENIES PAIN 0/10.
--- NOTE | 2021-08-26 19:40 | NUR ---
Patient's Plan of Care was discussed and reviewed with COMPUTED TOMOGRAPHY TECHNOLOGIST: MANAN VELA
--- NOTE | 2021-08-26 20:00 | NUR ---
REQUESTED NURSE TO BE WITH HIM AND TO ALWAYS TO TALK TO HIM. VERBALIZED HE WANTS NURSE TO DESCRIBE HIM AND WANTS TO KNOW BETTER HIS NURSE. EXPLAINED THAT HIS MEDICATIONS WILL BE GIVEN AND NURSE IS ALWAYS AVAILABLE WHENEVER HE NEEDS HELP.
[2021-08-26] MEDS: OLANZapine 5 MG TAB PO SCH (20:41)
[2021-08-26] MEDS ORDERED: HYDROCORTISONE 1% CRM 30 GM TUBE TP SCH (21:00)
--- NOTE | 2021-08-26 21:30 | NUR ---
Call center monitoring placement. No availability has been established yet. Hold expires this evening. Fax updated hold to call center once obtained if upheld. Addendum: 08/26/21 at 2139 by PHSCMMK Addendum correction- Hold expires 08/27 @ 2044 Intake was refaxed. [facility]/ [facility]/ [facility]/ [facility]/ [facility]/ [place]... will keep facility updated
--- NOTE | 2021-08-26 21:50 | NUR ---
CALLED NURSE AND STATED, "I HAVE A PROBLEM WITH MY PENIS, I CAN'T MAKE IT WORK." EXPLAINED NURSE JOB DOES NOT INCLUDE THAT ASPECT AND THAT HE SHOULD TRY TO RELAX AND THINK OF GETTING WELL INSTEAD OF FOCUSING THINGS THAT ARE NOT APPROPRIATE IN A HOSPITAL SETTING.
--- NOTE | 2021-08-26 22:00 | NUR ---
PATIENT SHOWED HIS PENIS. MADE AWARE THAT IS NOT RIGHT, AND LEAVE PATIENT.
--- NOTE | 2021-08-26 22:15 | NUR ---
CHECKED PATIENT, SLEEPING ON BED.
[2021-08-26] MEDS: LORazepam 2 MG/ML VIAL IM/IVP PRN (22:28)
--- NOTE | 2021-08-26 22:28 | NUR ---
AWAKE IN BED, WITH ANXIETY/AGITATED. MEDICATED WITH ATIVAN PER MD ORDER. PATIENT IS COOPERATIVE.
[2021-08-26 23:06] VITALS: BP 122/55
--- NOTE | 2021-08-26 23:30 | NUR ---
NO AGITATION, SLEEPING COMFORTABLY IN BED.
--- NOTE | 2021-08-27 02:00 | NUR ---
STILL SLEEPING COMFORTABLY IN BED.
--- NOTE | 2021-08-27 04:00 | NUR ---
LAYING SUPINE IN BED. NO DISTRESS NOTED.
--- NOTE | 2021-08-27 06:00 | NUR ---
ABLE TO SLEEP WELL. SAFETY MAINTAINED DURING THE SHIFT.
--- NOTE | 2021-08-27 06:00 | NUR ---
CLEANSED AND DIAPER CHANGED WITH PRESCHOOL ADVISER. MADE COMFORTABLE IN BED WITH PILLOWS. Addendum: 08/27/21 at 0700 by Lelo Ryan LVN NOTE: THIS CHARTING IS NOT FOR THIS PATIENT.
--- NOTE | 2021-08-27 07:04 | NUR ---
CONDITION REMAIN STABLE. ENDORSED TO AM SHIFT NURSE FOR CONTINUITY OF CARE.
--- NOTE | 2021-08-27 07:05 | NUR ---
CONDITION REMAIN STABLE. ENDORSED TO AM SHIFT NURSE FOR CONTINUITY OF CARE.
[2021-08-27 07:06] VITALS: BP 126/65
--- NOTE | 2021-08-27 08:00 | NUR ---
RECEIVED PATIENT IN STABLE CONDITION W/ NO IV ACCESS FOR 5150, WHICH WILL 2044, 08/27/2021. WILL CALL JASMIN TO F/U.
--- NOTE | 2021-08-27 13:02 | NUR ---
PSYCHOGILDA , CALLED FOR RENEW PATIENT'S 5150 ORDER. WILL CONTINUE TO MONITOR.
[2021-08-27] MEDS ORDERED: OLANZapine 10 MG VIAL IM PRN (14:00)
[2021-08-27] MEDS ORDERED: OLANZapine 5 MG TAB PO PRN (14:00)
--- NOTE | 2021-08-27 15:24 | NUR ---
DANUTA GUERRA OUTREACHED TO [facility] AT [phone] TO FOLLOW UP ON OPEN BEDS. CHARLIE SPOKE WITH INTAKE DEPT WHO REPORTED OPEN BEDS. CHARLIE FAXED OVER PACKET AND WILL FOLLOW UP.
--- NOTE | 2021-08-27 15:31 | NUR ---
PSYCH-MD CONTACTED REGARDING PATIENT'S CURRENT STATUS AND 5150 ON HOLD WILL TONIGHT AT 2044. ORDER TO PLACE PT ON HOLD UNTIL PSYCH-FACILITY PLACEMENT FINALIZE.
--- NOTE | 2021-08-27 15:58 | NUR ---
DC PLANNING CHARLIE OUTREACHED TO [place] TO CHECK ON THE STATUS OF PACKET SENT OVER. ANSELMO IN ADMISSIONS REPORTED THAT HE IS CURRENTLY WORKING ALONE AND IS REVIEWING ADMISSIONS. ANSELMO REPORTED THAT HE WOULD FOLLOW UP. CHARLIE PROVIDED DIRECT NUMBERS TO SW'S. Addendum: 08/28/21 at 1609 by Aleyda Mao SS DC PLANNING CHARLIE RECEIVED A CALL FORM [place] SPOKE TO JOSE WHO REPORTED THAT PATIENT HAS BEEN ACCEPTED TO ROOM 26A. CHARLIE WILL ENDORSE INFORMATION WITH AND [facility] STAFF. CHARLIE CALL [facility] [phone] TO SET UP [facility] TRANSPORT FOR PATIENT TO GO TO [place] TODAY. [facility] TOOK INFORMATION AND CONFIRMED CABINETMAKER SUPERVISOR TIME WITH IN 45 MINS. CHARLIE CALL AND ENDORSE INFORMATION TO [facility]EE. PER ROSA SHE HAS ALREADY GIVE REPORT TO [facility] WITH JOSE ALREADY AND SHE WILL BE GETTING PATIENT READY TO GO IN ABOUT 45 MINS. CHARLIE WILL FOLLOW UP NEEDED.
[2021-08-27 16:00] VITALS: BP 118/75
[2021-08-27] MEDS: LORazepam 2 MG/ML VIAL IM/IVP PRN (17:35)
--- NOTE | 2021-08-27 19:31 | NUR ---
RECEIVED CALL BACK FROM DR. MONZON, AND RECEIVED ORDER FOR JEFF. ORDER NOTED AND CARRIED OUT.
--- NOTE | 2021-08-27 19:36 | NUR ---
CALL [facility] DEPARTMENT ([phone]) FOR EXTEND PATIENT'S 5150 HOLD ORDER. DISPATCH TAKE DOWN INFORMATION AND WILL F/U.
--- NOTE | 2021-08-27 19:40 | NUR ---
RECEIVED BEDSIDE REPORT FROM DAY SHIFT RN FOR CONTINUITY OF CARE. PT IS AWAKE ON RA. PT IS NOT AGITATED OR COMPLAINING AT THIS TIME. PT HAS NO IV SITE. ALL SAFETY MEASURES TAKEN. WILL CONTINUE TO MONITOR THE PT.
--- NOTE | 2021-08-27 19:44 | NUR ---
Monitoring for updated hold to continue assisting with placement. Call center fax - [phone]
[2021-08-27 20:00] VITALS: BP 110/63
--- NOTE | 2021-08-27 20:40 | NUR ---
MEAGHAN COUCH CAME TO THE HOSPITAL TO EXTEND 5150 HOLD. OFFICER IVANA EVALUATED PT AND ISSUED THE EXTENDED 5150 HOLD. WILL CONTINUE TO MONITOR THE PT.
[2021-08-27] MEDS ORDERED: ZIPRASIDONE 40 MG CAP PO SCH (21:00)
[2021-08-27] MEDS: ZIPRASIDONE 40 MG CAP PO SCH (21:07)
--- NOTE | 2021-08-28 01:15 | NUR ---
PT IS SLEEPING IN BED COMFORTABLY. PT IS NOT IN ANY DISTRESS. BREATHING EVEN AND UNLABORED. ALL SAFETY MEASURES TAKEN. WILL CONTINUE TO MONITOR THE PT.
--- NOTE | 2021-08-28 03:30 | NUR ---
PT IS SLEEPING IN BED COMFORTABLY. PT IS NOT IN ANY DISTRESS. BREATHING EVEN AND UNLABORED. ALL SAFETY MEASURES TAKEN. WILL CONTINUE TO MONITOR THE PT.
--- NOTE | 2021-08-28 07:20 | NUR ---
ENDORSED PT TO DAY SHIFT RN FOR CONTINUITY OF CARE. PT IS STABLE.
[2021-08-28] MEDS: ZIPRASIDONE 40 MG CAP PO SCH (09:00)
--- NOTE | 2021-08-28 09:11 | NUR ---
RECEIVED ENDORSEMENT FROM PM SHIFT NURSE WITH PATIENT IN STABLE CONDITION. NO IV ACCESS. PATIENT SLEEPING
--- NOTE | 2021-08-28 11:00 | NUR ---
RECEIVED CALL FROM JOSE (TEL: [phone]) FROM [facility] (FAX: [phone]) IN [place] REGARDING TO TRANSFER PATIENT TO [facility]. NURSE GIVE REPORT TO JOSE AND FAX RENEWED 0068 HOLD DOCUMENT. WILL F/U
[2021-08-28] MEDS: HYDROCORTISONE 1% CRM 30 GM TUBE TP PRN (11:07)
[2021-08-28 11:56] VITALS: BP 122/36
[2021-08-28 15:39] VITALS: BP 122/36
[2021-08-28 15:54] VITALS: BP 122/36
--- NOTE | 2021-08-28 16:25 | NUR ---
[facility] IS HERE PASTRY ASSISTANT PATIENT AND TRANSFER TO [facility]. REPORT GIVEN. PT STABLE
--- NOTE | 2021-08-28 21:55 | NUR ---
Late note - Received updated hold. Intake information has been refaxed out to the following facilities for review for placement. [facility]/ [facility]/ [facility]/ [place]/ [facility]/ [facility]/ [place]. Will keep facility updated with any information regarding placement.
== END 2021-08-28 16:40 | DRG 751 ==
LOC: MED 18:47 → MTU 08-25 14:21 → OBSVTOIN 08-25 14:21
PROVIDERS: ADMIT Internal Medicine; ATTEND Internal Medicine
DX: F23 Brief psychotic disorder (principal); R45.851 Suicidal ideations; Z91.14 Patient's other noncompliance with medication regimen; F32.A Depression, unspecified; Z20.822 Contact with and (suspected) exposure to COVID-19
CPT/HCPCS: 36415; 80053; 80305; 85025; 93005; 99285; G0480; G0482; J2060; J3490; U0003

== ENCOUNTER 2021-12-15 04:00 | Emergency (ER) | payer OTHER ==
[~2021-12-15] VITALS: Ht 175.3 cm; Wt 91.2 kg
[2021-12-15 04:25] VITALS: BP 132/80
--- NOTE | 2021-12-15 04:32 | NUR ---
SEEN AND EXAMINED BY SURESH
[2021-12-15 05:50] VITALS: BP 132/80
--- NOTE | 2021-12-15 05:50 | NUR ---
Patient discharged with v/s stable. Written and verbal after care instructions given and explained, BY DR. PIERCE. Patient verbalized understanding. Ambulatory with steady gait. All questions addressed prior to discharge. Advised to follow up with PMD.
== END 2021-12-15 05:50 | disposition home or self-care (01) ==
LOC: MED 04:00
DX: S63.502A Unspecified sprain of left wrist, initial encounter (principal); S63.501A Unspecified sprain of right wrist, initial encounter; X58.XXXA Exposure to other specified factors, initial encounter; Y93.89 Activity, other specified; Y92.89 Other specified places as the place of occurrence of the external cause; Y99.8 Other external cause status
CPT/HCPCS: 73110; 99284